=== PATIENT | male | born 1995 | race Caucasian/White ===

== ENCOUNTER 2017-01-03 15:18 | Emergency (ER) | payer OTHER ==
[~2017-01-03] VITALS: Ht 172.7 cm; Wt 84.8 kg
[2017-01-03 15:21] VITALS: TEMP 36.8; Ht 172.7 cm; Wt 84.8 kg
[2017-01-03] MEDS ORDERED: DIAZEPAM INJ 5 MG/ML 2 ML CARP IV STA (15:44)
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
[2017-01-03 17:09] VITALS: BP 142/91; PULSE 67; O2SAT 99
== END 2017-01-03 17:31 | disposition home or self-care (01) ==
LOC: C.EDB 15:22 → C.EDD 17:31
DX: S03.00XA Dislocation of jaw, unspecified side, initial encounter (principal); X58.XXXA Exposure to other specified factors, initial encounter

== ENCOUNTER → 2017-02-04 | Outpatient (CLI) | payer OTHER | END | disposition home or self-care (01) | LOC: C.RDSM 11:12 | PROVIDERS: ATTEND Family Medicine Sports Medicine | DX: M79.671 Pain in right foot (principal) ==